=== PATIENT | male | born 1960 | race African-American/Black ===

== ENCOUNTER 2017-08-20 07:24 | Emergency (ER) | payer MEDICARE ==
[2017-08-20 07:45] VITALS: RESP 16
[2017-08-20] MEDS ORDERED: SODIUM CHLORIDE 0.9% 1,000 ML IV STA ×2 (08:28)
[2017-08-20] MEDS ORDERED: MECLIZINE 12.5 MG TAB PO STA (08:29)
--- NOTE | 2017-08-20 08:32 | ED ---
Dizziness HPI - General Chief Complaint: Dizziness Stated Complaint: lt ear pain Time Seen by Provider: 08/20/17 08:02 Source: patient, RN notes reviewed, old records reviewed Mode of arrival: wheelchair Limitations: no limitations - History of Present Illness Initial Comments: Patient is a 57-year-old male chief complaint of multiple syncopal episodes for the past evening. He reports that he is also suffering from some vertigo and sinus issues. He reports diffuse over the past few days felt pressure and pain in his left ear and Patient states that he was started on amoxicillin, steroids , and Flonase by his PCP. He's been taking these medications without any relief of the vertigo like symptoms. He reports he turns his head to the T has dizziness the room is spinning. He reports that today he was having episodes really would blackout for approximately 3-4 seconds and would wake up on the couch. Patient states that he has had vertigo in the past but is never had these blacking out episodes. Denies any other symptoms including chest pain or shortness of breath. Patient has had a few episodes of vomiting. He did not take his blood pressure medication this morning. - Related Data Home Medications Medication Instructions Recorded Confirmed Amoxic-Pot Clav 875-125Mg 1 tab PO Q12HR 08/20/17 08/20/17 [Augmentin 875-125] Fluticasone Nasal [place] [Flonase 1 spray EA NOSTRIL DAILY PRN 08/20/17 08/20/17 Nasal [place]] Montelukast Sodium [Singulair] 10 mg PO HS 08/20/17 08/20/17 Propranolol HCl [Inderal LA] 160 mg PO DAILY 08/20/17 08/20/17 Tamsulosin HCl [Flomax] 0.4 mg PO DAILY 08/20/17 08/20/17 methylPREDNISolone [Medrol Dose See Taper PO DIRECTED 08/20/17 08/20/17 Pack] Previous Rx's Medication Instructions Recorded Acetaminophen/Chlorpheniramine 1 each PO DAILY #14 tablet 08/20/17 [Coricidin Hbp Cold & Flu Tab] Meclizine [Antivert] 25 mg PO DAILY #10 tab 08/20/17 Allergies Allergy/AdvReac Type Severity Reaction Status Date / Time ibuprofen AdvReac Vomiting Verified 08/20/17 08:29 Review of Systems ROS Statement: Those systems with pertinent positive or pertinent negative responses have been documented in the HPI. ROS Other: All systems not noted in ROS Statement are negative. Past Medical History Past Medical History: Hyperlipidemia, Hypertension Additional Past Medical History / Comment(s): chronic back pain History of Any Multi-Drug Resistant Organisms: None Reported Additional Past Surgical History / Comment(s): sinus vertigo Past Psychological History: No Psychological Hx Reported Smoking Status: Current every day smoker Past Alcohol Use History: Rare Past Drug Use History: None Reported General Exam - General Exam Comments Initial Comments: Is a 57-year-old male. Alert and oriented. No significant distress. Limitations: no limitations General appearance: alert, in no apparent distress Head exam: Present: atraumatic, normocephalic, normal inspection Eye exam: Present: normal appearance, PERRL, EOMI. Absent: scleral icterus, conjunctival injection, periorbital swelling ENT exam: Present: normal exam, mucous membranes moist Neck exam: Present: normal inspection. Absent: tenderness, meningismus, lymphadenopathy Respiratory exam: Present: normal lung sounds bilaterally. Absent: respiratory distress, wheezes, rales, rhonchi, stridor Cardiovascular Exam: Present: regular rate, normal rhythm, normal heart sounds. Absent: systolic murmur, diastolic murmur, rubs, gallop, clicks GI/Abdominal exam: Present: soft, normal bowel sounds. Absent: distended, tenderness, guarding, rebound, rigid Extremities exam: Present: normal inspection Back exam: Present: normal inspection Neurological exam: Present: alert, oriented X3, CN II-XII intact Psychiatric exam: Present: normal affect, normal mood Skin exam: Present: warm, dry, intact, normal color. Absent: rash Course Vital Signs 08/20/17 08/20/17 07:40 09:15 Temperature 98.1 F Pulse Rate 62 54 L Respiratory 16 16 Rate Blood Pressure 177/102 149/89 O2 Sat by Pulse 100 95 Oximetry - Reevaluation(s) Reevaluation #1: 08/20/17 09:48 Patient was reevaluated reports is feeling better at this time. Denies any significant dizziness. He thinks that the maximum meclizine has helped his symptoms. Currently pending lab work. Medical Decision Making - Medical Decision Making Patient sexual male presents emergency Department chief complaint of sinus congestion and dizziness. He was White on antibiotics and steroids for sinus congestion from PCP earlier in the week. Patient does have some nystagmus on exam. Otherwise has no focal or lateralizing findings on neuro exam. Does have some effusion within the left ear. Patient is given meclizine and lab work obtained. Lab work was reviewed and unremarkable. No meningeal signs and otherwise appears well. Patient reports he feels better after meclizine. Discussed I will discharge the Patient with decongestant medication and meclizine continuing his antibiotics and steroids as White prescribed. QUESTIONS answered return parameters were discussed. - Lab Data Result diagrams: 08/20/17 09:05 08/20/17 09:05 Lab Results 08/20/17 08/20/17 08/20/17 Range/Units 09:05 09:05 09:05 WBC 8.5 (3.8-10.6) k/uL RBC 5.28 (4.30-5.90) m/uL Hgb 16.8 (13.0-17.5) gm/dL Hct 52.1 (39.0-53.0) % MCV 98.6 (80.0-100.0) fL MCH 31.9 (25.0-35.0) pg MCHC 32.3 (31.0-37.0) g/dL RDW 13.1 (11.5-15.5) % Plt Count 190 (150-450) k/uL Neutrophils % 64 % Lymphocytes % 27 % Monocytes % 5 % Eosinophils % 2 % Basophils % 0 % Neutrophils # 5.5 (1.3-7.7) k/uL Lymphocytes # 2.3 (1.0-4.8) k/uL Monocytes # 0.4 (0-1.0) k/uL Eosinophils # 0.2 (0-0.7) k/uL Basophils # 0.0 (0-0.2) k/uL PT (9.0-12.0) sec INR (<1.2) APTT (22.0-30.0) sec Sodium 141 (137-145) mmol/L Potassium 4.8 (3.5-5.1) mmol/L Chloride 101 (98-107) mmol/L Carbon Dioxide 27 (22-30) mmol/L Anion Gap 13 mmol/L BUN 12 (9-20) mg/dL Creatinine 0.84 (0.66-1.25) mg/dL Est GFR (CKD-EPI)AfAm >90 (>60 ml/min/1.73 sqM) Est GFR (CKD-EPI)NonAf >90 (>60 ml/min/1.73 sqM) Glucose 104 H (74-99) mg/dL Calcium 9.6 (8.4-10.2) mg/dL Magnesium 2.2 (1.6-2.3) mg/dL Total Bilirubin 1.0 (0.2-1.3) mg/dL AST 26 (17-59) U/L ALT 24 (21-72) U/L Alkaline Phosphatase 95 (38-126) U/L Total Creatine Kinase 58 (55-170) U/L CK-MB (CK-2) <0.2 (0.0-2.4) ng/mL CK-MB (CK-2) Rel Index Troponin I <0.012 (0.000-0.034) ng/mL Total Protein 7.7 (6.3-8.2) g/dL Albumin 4.5 (3.5-5.0) g/dL Urine Color Urine Appearance (Clear) Urine pH (5.0-8.0) Ur Specific [place] (1.001-1.035) Urine Protein (Negative) Urine Glucose (UA) (Negative) Urine Ketones (Negative) Urine Blood (Negative) Urine Nitrite (Negative) Urine Bilirubin (Negative) Urine Urobilinogen (<2.0) mg/dL Ur Leukocyte Esterase (Negative) 08/20/17 08/20/17 Range/Units 09:05 09:28 WBC (3.8-10.6) k/uL RBC (4.30-5.90) m/uL Hgb (13.0-17.5) gm/dL Hct (39.0-53.0) % MCV (80.0-100.0) fL MCH (25.0-35.0) pg MCHC (31.0-37.0) g/dL RDW (11.5-15.5) % Plt Count (150-450) k/uL Neutrophils % % Lymphocytes % % Monocytes % % Eosinophils % % Basophils % % Neutrophils # (1.3-7.7) k/uL Lymphocytes # (1.0-4.8) k/uL Monocytes # (0-1.0) k/uL Eosinophils # (0-0.7) k/uL Basophils # (0-0.2) k/uL PT 11.1 (9.0-12.0) sec INR 1.2 H (<1.2) APTT 23.1 (22.0-30.0) sec Sodium (137-145) mmol/L Potassium (3.5-5.1) mmol/L Chloride (98-107) mmol/L Carbon Dioxide (22-30) mmol/L Anion Gap mmol/L BUN (9-20) mg/dL Creatinine (0.66-1.25) mg/dL Est GFR (CKD-EPI)AfAm (>60 ml/min/1.73 sqM) Est GFR (CKD-EPI)NonAf (>60 ml/min/1.73 sqM) Glucose (74-99) mg/dL Calcium (8.4-10.2) mg/dL Magnesium (1.6-2.3) mg/dL Total Bilirubin (0.2-1.3) mg/dL AST (17-59) U/L ALT (21-72) U/L Alkaline Phosphatase (38-126) U/L Total Creatine Kinase (55-170) U/L CK-MB (CK-2) (0.0-2.4) ng/mL CK-MB (CK-2) Rel Index Troponin I (0.000-0.034) ng/mL Total Protein (6.3-8.2) g/dL Albumin (3.5-5.0) g/dL Urine Color Light Yellow Urine Appearance Clear (Clear) Urine pH 6.0 (5.0-8.0) Ur Specific [place] 1.004 (1.001-1.035) Urine Protein Negative (Negative) Urine Glucose (UA) Negative (Negative) Urine Ketones Negative (Negative) Urine Blood Negative (Negative) Urine Nitrite Negative (Negative) Urine Bilirubin Negative (Negative) Urine Urobilinogen <2.0 (<2.0) mg/dL Ur Leukocyte Esterase Negative (Negative) 08/20/17 08:33 EKG formed at 7:15 dementia sinus bradycardia left atrial enlargement. Borderline EKG. Ventricular rate of 51 bpm. He was 180 ms. QRS duration 82 ms. QT QTc is 412/379 ms. - Radiology Data Radiology results: report reviewed Chest x-rays negative for any acute process. Disposition Clinical Impression: Vertigo Disposition: HOME SELF-CARE Condition: Good Instructions: Dizziness (ED) Additional Instructions: Patient advised to follow-up with primary care physician within next 1-2 days. Take meclizine and use decongestant medicine as prescribed. Continue the previous prescribed antibiotics and steroids. Return to the emergency department if any alarming signs or symptoms occur. Prescriptions: Acetaminophen/Chlorpheniramine [Coricidin Hbp Cold & Flu Tab] 1 each PO DAILY # 14 tablet Meclizine [Antivert] 25 mg PO DAILY #10 tab Is patient prescribed a controlled substance at d/c from ED?: No When asked, does pt state using other controlled substances?: No If prescribed controlled substance>3 days was MAPS reviewed?: No If opioid is for acute pain is fill amount 7 days or less?: No If Rx opioid, was Start Talking consent form obtained?: No Referrals: Hosea Ji MD [Primary Care Provider] - 1-2 days Sneha Hoyos MD [STAFF PHYSICIAN] - 1-2 days Time of Disposition: 10:33
[2017-08-20 09:24] LABS: Basophils % (A) 0 %; Eosinophils # (A) 0.2 k/uL (0-0.7); Eosinophils % (A) 2 %; HCT 52.1 % (39.0-53.0); HGB 16.8 gm/dL (13.0-17.5); Lymphocytes # (A) 2.3 k/uL (1.0-4.8); Lymphocytes % (A) 27 %; MCH 31.9 pg (25.0-35.0); MCHC 32.3 g/dL (31.0-37.0); MCV 98.6 fL (80.0-100.0); Mean Platelet Volume 7.9; Monocytes # (A) 0.4 k/uL (0-1.0); Monocytes % (A) 5 %; Neutrophils # (A) 5.5 k/uL (1.3-7.7); Neutrophils % (A) 64 %; Platelet Count 190 k/uL (150-450); RBC 5.28 m/uL (4.30-5.90); RDW 13.1 % (11.5-15.5); WBC 8.5 k/uL (3.8-10.6)
[2017-08-20 09:33] LABS: INR 1.2 (<1.2); Partial Thromboplastin Time 23.1 sec (22.0-30.0); Prothrombin Time 11.1 sec (9.0-12.0)
--- NOTE | 2017-08-20 09:34 | XR ---
EXAMINATION TYPE: XR chest 2V DATE OF EXAM: 08/20/2017 COMPARISON: Chest x-ray July 15, 2009 HISTORY: Syncope and weakness TECHNIQUE: Frontal and lateral views of the chest are obtained. FINDINGS: There is no focal air space opacity, pleural effusion, or pneumothorax seen. The cardiac silhouette size is upper limits of normal currently. The osseous structures are intact. IMPRESSION: No acute cardiopulmonary process. No significant change from prior.
[2017-08-20 09:42] LABS: Appearance,Urine Clear (Clear); Bilirubin,Urine Negative (Negative); Blood,Urine Negative (Negative); Color,Urine Light Yellow; Glucose,Urine (UA) Negative (Negative); Ketones,Urine Negative (Negative); Leukocyte Esterase,Urine Negative (Negative); Nitrite,Urine Negative (Negative); Protein,Urine Negative (Negative); Specific Gravity,Urine 1.004 (1.001-1.035); Urobilinogen,Urine <2.0 mg/dL (<2.0)
[2017-08-20 09:43] LABS: Albumin 4.5 g/dL (3.5-5.0); Anion Gap 13 mmol/L; Calcium 9.6 mg/dL (8.4-10.2); Carbon Dioxide 27 mmol/L (22-30); Chloride 101 mmol/L (98-107); Glucose 104 mg/dL (74-99); Sodium 141 mmol/L (137-145); Total Protein 7.7 g/dL (6.3-8.2)
[2017-08-20 09:46] LABS: Blood Urea Nitrogen 12 mg/dL (9-20); Potassium 4.8 mmol/L (3.5-5.1)
[2017-08-20 09:47] LABS: ALT 24 U/L (21-72); AST 26 U/L (17-59); Alkaline Phosphatase 95 U/L (38-126); Magnesium 2.2 mg/dL (1.6-2.3)
[2017-08-20 09:52] LABS: Creatine Kinase 58 U/L (55-170)
[2017-08-20 10:04] LABS: Creatine Kinase MB <0.2 ng/mL (0.0-2.4); Troponin I <0.012 ng/mL (0.000-0.034)
[2017-08-20 10:51] VITALS: BP 142/82; PULSE 63; TEMP 97.3
== END 2017-08-20 11:02 | disposition home or self-care (01) ==
LOC: EC 07:24
DX: R42 Dizziness and giddiness (principal); H92.02 Otalgia, left ear; I10 Essential (primary) hypertension; F17.200 Nicotine dependence, unspecified, uncomplicated; Z79.52 Long term (current) use of systemic steroids; Z79.899 Other long term (current) drug therapy; Z88.6 Allergy status to analgesic agent
CPT/HCPCS: 36415; 71046; 80053; 81003; 82550; 82553; 83735; 84484; 85025; 85610; 85730; 93005; 96360; 96361; 99284

== ENCOUNTER → 2017-12-31 | Outpatient (CLI) | payer MEDICARE ==
--- NOTE | 2017-12-31 11:23 | CT ---
EXAMINATION TYPE: CT brain wo con DATE OF EXAM: 12/31/2017 COMPARISON: 11/30/2011 HISTORY: Headache, syncope, dizziness, recurrent sinus infections. CT DLP: 999.[address] of the brain was performed. The ventricles, basal cisterns and sulci overlying the cerebral convexities demonstrate mild enlargem ent. There is no evidence for intracranial hemorrhage or sulcal effacement. There is decreased attenuation about the periventricular white matter and deep white matter of both c erebral hemispheres, compatible with chronic small vessel ischemia. Differential diagnosis does inclu de demyelination. No mass effects are seen.No midline shift. Osseous calvarium is intact. If symptoms persist consider MRI. IMPRESSION: 1. Age related atrophic and chronic small vessel ischemic change without acute intracranial process s een at this time.
== END | disposition home or self-care (01) ==
LOC: RADCTMAIN 10:59
PROVIDERS: ATTEND Family Medicine
DX: G31.1 Senile degeneration of brain, not elsewhere classified (principal); I67.82 Cerebral ischemia
CPT/HCPCS: 70450

== ENCOUNTER → 2022-06-24 | Outpatient (CLI) | payer MEDICARE ==
--- NOTE | 2022-06-24 10:29 | CTL ---
EXAMINATION TYPE: CT Low Dose Lung DATE OF EXAM ORDERED: 06/24/2022 HISTORY: Long-term tobacco use. Lung cancer screening CT DLP: 77.[address] CTDI: 2.3 mGy Automated exposure control for dose reduction was used. SCREENING VISIT: Baseline COMPARISON: None TECHNIQUE: Low dose computed tomography scan was performed through the chest at 1 mm thick sections a nd reconstructed images in multiple planes at 1 mm and [address] DIAGNOSTIC QUALITY: Satisfactory FINDINGS: LUNG NODULES: Present, detailed below: Multiple Scattered small nodules are present bilaterally. Ther e are greatest involving the anterior aspect of the bilateral upper to mid lungs. One of the largest is in the peripheral right upper lobe measuring 4.6 x 3.9 mm axial image 71. No greater than 5 mm pul monary nodules are seen. LUNGS: COPD: Severity: Mild Fibrosis: Severity: Mild particularly in the periphery of the upper lungs. I also suspect a component of mild interstitial edema. Lymph nodes: None Other findings: None RIGHT PLEURAL SPACE: Effusion: None Calcification: None Thickening: None Pneumothorax: None LEFT PLEURAL SPACE: Effusion: None Calcification: None Thickening: None Pneumothorax: None HEART: Heart Size: Normal Coronary Calcification: Mild Pericardial Effusion: None OTHER FINDINGS: Upper abdomen: None Bony thorax: None Supraclavicular region: None Other: None IMPRESSION: Multiple small scattered nodules greatest in the upper lungs. No significant greater than 5 mm pulmonary nodules. Mild edematous and fibrotic change and background mild underlying emphysemat ous change. CT LUNG RAD AND CT CHEST RECOMMENDATION: Lung-Rad 2 Benign Appearance or Behavior: Continue annual sc reening with LDCT in 12 months. S Modifier (other clinically significant findings): None
== END | disposition home or self-care (01) ==
LOC: RADCTMAIN 09:50
PROVIDERS: ATTEND Family Medicine
DX: Z12.2 Encounter for screening for malignant neoplasm of respiratory organs (principal); F17.210 Nicotine dependence, cigarettes, uncomplicated; J43.9 Emphysema, unspecified; J84.10 Pulmonary fibrosis, unspecified; R91.8 Other nonspecific abnormal finding of lung field
CPT/HCPCS: 71271

== ENCOUNTER 2024-01-08 10:38 | Inpatient (IN) | payer MEDICARE ==
[2024-01-08] MEDS: HEPARIN SODIUM 1,000 UN/ML (10ML VL) MISCELLANE ONE (10:45)
--- NOTE | 2024-01-08 10:45 | ED ---
General Adult HPI - General Chief complaint: Chest Pain Stated complaint: Stemi Time Seen by Provider: 01/08/24 10:38 Source: patient, EMS, RN notes reviewed, old records reviewed Mode of arrival: EMS Limitations: no limitations - History of Present Illness Initial comments: This is a 63-year-old male with past medical history significant for high blood pressure and high cholesterol. Patient comes to us from [facility]. Patient was diagnosed with a STEMI at [facility] and transferred to us. They gave the patient nitro aspirin Dilaudid and morphine the patient was feeling considerably better upon arrival. Patient states the pain started about 9:00 this morning and it was in the center of his chest with some shortness of breath. Patient states he has only minimal pain at this point in time and he denies any shortness of breath currently. Patient denies any diaphoretic episode. Patient has nausea vomiting. Patient denies any recent fever chills or cough. Patient has any swelling to the legs or calf tenderness - Related Data Home Medications Medication Instructions Recorded Confirmed Amoxic-Pot Clav 875-125Mg 1 tab PO Q12HR 08/20/17 08/20/17 [Augmentin 875-125] Fluticasone Nasal [place] [Flonase 1 spray EA NOSTRIL DAILY PRN 08/20/17 08/20/17 Nasal [place]] Montelukast Sodium [Singulair] 10 mg PO HS 08/20/17 08/20/17 Propranolol HCl [Inderal LA] 160 mg PO DAILY 08/20/17 08/20/17 Tamsulosin HCl [Flomax] 0.4 mg PO DAILY 08/20/17 08/20/17 methylPREDNISolone [Medrol Dose See Taper PO DIRECTED 08/20/17 08/20/17 Pack] Previous Rx's Medication Instructions Recorded Acetaminophen/Chlorpheniramine 1 each PO DAILY #14 tablet 08/20/17 [Coricidin Hbp Cold & Flu Tab] Meclizine [Antivert] 25 mg PO DAILY #10 tab 08/20/17 Allergies Allergy/AdvReac Type Severity Reaction Status Date / Time ibuprofen AdvReac Vomiting Verified 01/08/24 10:42 Review of Systems ROS Statement: Those systems with pertinent positive or pertinent negative responses have been documented in the HPI. ROS Other: All systems not noted in ROS Statement are negative. Past Medical History Past Medical History: Hyperlipidemia, Hypertension Additional Past Medical History / Comment(s): chronic back pain History of Any Multi-Drug Resistant Organisms: None Reported Additional Past Surgical History / Comment(s): sinus vertigo Past Psychological History: No Psychological Hx Reported Past Alcohol Use History: Rare Past Drug Use History: None Reported General Exam - General Exam Comments Initial Comments: GENERAL: Patient is well-developed and well-nourished. Patient is nontoxic and well- hydrated and is in mild distress. ENT: Neck is soft and supple. No significant lymphadenopathy is noted. Oropharynx is clear. Moist mucous membranes. Neck has full range of motion without eliciting any pain. EYES: The sclera were anicteric and conjunctiva were pink and moist. Extraocular movements were intact and pupils were equal round and reactive to light. Eyelids were unremarkable. PULMONARY: Unlabored respirations. Good breath sounds bilaterally. No audible rales rhonchi or wheezing was noted. CARDIOVASCULAR: There is a regular rate and rhythm without any murmurs gallops or rubs. ABDOMEN: Soft and nontender with normal bowel sounds. SKIN: Skin is clear with no lesions or rashes and otherwise unremarkable. NEUROLOGIC: Patient is alert and oriented x3. Cranial nerves II through XII are grossly intact. Motor and sensory are also intact. Normal speech, volume and content. Symmetrical smile. MUSCULOSKELETAL: Normal extremities with adequate strength and full range of motion. No lower extremity swelling or edema. No calf tenderness. LYMPHATICS: No significant lymphadenopathy is noted PSYCHIATRIC: Normal psychiatric evaluation. Limitations: no limitations Course Vital Signs 01/08/24 10:39 Pulse Rate 57 L Respiratory 18 Rate Blood Pressure 124/101 O2 Sat by Pulse 97 Oximetry Medical Decision Making - Medical Decision Making Patient had an EKG done however there was quite a bit of noise in the precordial leads I through III so a repeat was done and those leads were able to be read but the inferior leads were very noisy and the second EKG. EKG on the first morning showed sinus bradycardia [address] of 180 QRS is 91 QT interval 427 QTc is [address] segment elevation in V5 and V6 with ST segment depression in V1 through V3 and slight elevation in 2. Second EKG was done and was interpreted by myself and shows sinus bradycardia [address] was under 97 QRS of 91 QT interval is 441 QTc is 425 per patient's EKG shows ST segment elevation in V5 V6 and depression in V1 through V3 and unable to read the inferior leads secondary to noise. Was pt. sent in by a medical professional or institution ([facility], [facility], urgent care, hospital, or long term...) When possible be specific @ -[facility] sent the patient to us Did you speak to anyone other than the patient for history (EMS, parent, family, police, friend...)? What history was obtained from this source @ -I spoke with the ER doctor from [facility] Did you review nursing and triage notes (agree or disagree)? Why? @ -I reviewed and agree with nursing and triage notes Were old charts reviewed (outside hosp., previous admission, EMS record, old EKG, old radiological studies, urgent care reports/EKG's, long term records)? Report findings @ -No old charts were reviewed Differential Diagnosis? @ -Differential Chest Pain: Stable Angina, Unstable Angina, STEMI, NSTEMI Aortic Dissection, Pneumothorax, Musculoskeletal, Esophageal Spasm GERD, Cholecystitis, Pancreatitis, Zoster, this is not meant to be an all-inclusive list. EKG interpreted by me (3pts min.). @ -As above X-rays interpreted by me (1pt min.). @ -Chest x-ray shows no acute abnormality CT interpreted by me (1pt min.). @ -None done U/S interpreted by me (1pt. min.). @ -None done What testing was considered but not performed or refused? (CT, X-rays, U/S, labs)? Why? @ -None What meds were considered but not given or refused? Why? @ -None Did you discuss the management of the patient with other professionals (sue joseph i.e. [facility], [facility], lab, RT, psych nurse, bilingual social worker, obiee obia solution architect, teacher, chief supply chain officer, case mgr)? Give summary @ -On arrival patient was called a STEMI overhead. Patient will be sent to the [facility] as soon as its available. [facility] and cardiology was contacted by the other hospital prior to arrival Was smoking cessation discussed for >3mins.? @ -No Was critical care preformed (if so, how long)? @ -30 minutes Were there social determinants of health that impacted care today? How? (Homelessness, low income, unemployed, alcoholism, drug addiction, transportation, low edu. Level, literacy, decrease access to med. care, half-way, rehab)? @ -No Was there de-escalation of care discussed even if they declined (Discuss DNR or withdrawal of care, Hospice)? DNR status @ -No What co-morbidities impacted this encounter? (DM, HTN, Smoking, COPD, CAD, Cancer, CVA, ARF, Chemo, Hep., AIDS, mental health diagnosis, sleep apnea, morbid obesity)? @ -None Was patient admitted / discharged? Hospital course, mention meds given and route, prescriptions, significant lab abnormalities, going to OR and other pertinent info. @ -Patient was given a bolus of heparin and Lipitor while in our emergency department EKG did show ST segment elevation in leads V5 V6 and in inferior leads lead2 Undiagnosed new problem with uncertain prognosis? @ -No Drug Therapy requiring intensive monitoring for toxicity (Heparin, Nitro, Insulin, Cardizem)? @ -No Were any procedures done? @ -No Diagnosis/symptom? @ -STEMI Acute, or Chronic, or Acute on Chronic? @ -Acute Uncomplicated (without systemic symptoms) or Complicated (systemic symptoms)? @ -Default Side effects of treatment? @ -Gated Exacerbation, Progression, or Severe Exacerbation? @ -No Poses a threat to life or bodily function? How? (Chest pain, [place], [place], pneumonia, PE, COPD, DKA, ARF, appy, cholecystitis, CVA, Diverticulitis, Homicidal, Suicidal, threat to staff... and all critical care pts) @ -Yes this can lead to a [place] heart damage and or endorgan dysfunction Disposition Clinical Impression: ST elevation myocardial infarction (STEMI) Disposition: ADMITTED IP TO THIS HOSP Referrals: Nolan Beck MD [Primary Care Provider] - 1-2 days Time of Disposition: 10:51
[2024-01-08] MEDS: ATORVASTATIN 80 MG TAB PO STA (10:47)
[2024-01-08 10:59] LABS: Basophils % (A) 1 %; Eosinophils # (A) 0.2 k/uL (0-0.7); Eosinophils % (A) 4 %; HCT 47.7 % (39.0-53.0); HGB 15.3 gm/dL (13.0-17.5); Lymphocytes % (A) 42 %; MCH 31.8 pg (25.0-35.0); MCV 99.3 fL (80.0-100.0); Mean Platelet Volume 8.2; Monocytes # (A) 0.6 k/uL (0-1.0); Monocytes % (A) 13 %; Neutrophils # (A) 1.8 k/uL (1.3-7.7); Neutrophils % (A) 38 %; Platelet Count 175 k/uL (150-450); RDW 12.6 % (11.5-15.5); WBC 4.7 k/uL (3.8-10.6)
--- NOTE | 2024-01-08 10:59 | XR ---
EXAMINATION TYPE: XR chest 1V DATE OF EXAM: 01/08/2024 10:43 AM COMPARISON: 08/20/2017 CLINICAL INDICATION: Male, 63 years old with history of Chest Pain, TECHNIQUE: XR chest 1V view(s) obtained. FINDINGS: The heart size is normal. The pulmonary vasculature is prominent. There is some mild diffuse increased lung markings may be some early pulmonary edema IMPRESSION: 1. Mild diffuse increased lung markings may be early pulmonary edema. [facility], , 01/08/2024 10:57 AM
[2024-01-08] MEDS: LIDOCAINE 1% INJ 10MG/ML (20 ML MDV) SQ ONE (11:02)
[2024-01-08] MEDS: fentaNYL (PF) 50 MCG/1 ML VIAL IVP ONE (11:02)
[2024-01-08] MEDS: VERAPAMIL SYRINGE (5 MG/10 ML) INTRAARTER ONE (11:05)
[2024-01-08] MEDS: SODIUM CHLORIDE 0.9% 250 ML IV ONE (11:07)
[2024-01-08] MEDS: SODIUM CHLORIDE 0.9% 1,000 ML IV ONE (11:07)
[2024-01-08] MEDS: HEPARIN SODIUM 1,000 UN/ML (10ML VL) IVP ONE (11:10)
[2024-01-08] MEDS: ONDANSETRON 4 MG/2 ML VIAL IVP ONE (11:12)
[2024-01-08 11:14] LABS: ALT 16 U/L (4-49); AST 22 U/L (17-59); African American GFR (CKD) >90 (>60 ml/min/1.73 sqM); Albumin 3.4 g/dL (3.5-5.0); Alkaline Phosphatase 109 U/L (38-126); Anion Gap 3 mmol/L; Blood Urea Nitrogen 9 mg/dL (9-20); Calcium 8.1 mg/dL (8.4-10.2); Carbon Dioxide 24 mmol/L (22-30); Chloride 110 mmol/L (98-107); Glucose 106 mg/dL (74-99); Non-African American GFR(CKD) 88 (>60 ml/min/1.73 sqM); Potassium 4.3 mmol/L (3.5-5.1); Sodium 137 mmol/L (137-145); Total Protein 6.4 g/dL (6.3-8.2)
[2024-01-08 11:20] LABS: INR 1.1 (<1.2); Prothrombin Time 11.7 sec (10.0-12.5)
[2024-01-08] MEDS: PRASUGREL 10 MG TAB PO ONE (11:21)
[2024-01-08 11:31] LABS: Partial Thromboplastin Time 19.3 sec (22.0-30.0)
[2024-01-08] MEDS: IOPAMIDOL-370 100ML BTL INJ ONE ×3 (11:36→12:26)
[2024-01-08] MEDS: NITROGLYCERIN 1000MCG/10ML SYRINGE INTRACORON ONE (11:39)
[2024-01-08] MEDS ORDERED: ATROPINE SULFATE 0.1 MG/ML 10ML SYRINGE IV PRN (12:37)
[2024-01-08] MEDS ORDERED: RX INFO: IV CONTRAST WAS GIVEN 1 EACH MISC MISCELLANE PRN (12:37)
[2024-01-08] MEDS ORDERED: ZOLPIDEM 5 MG TAB PO PRN (12:37)
--- NOTE | 2024-01-08 12:44 | P.CRDCN ---
History of Present Illness Consult date: 01/08/24 History of present illness: History of Present Illness: The patient is a 63-year-old male with a history of hypertension, chronic tobacco use who presented to [facility] with symptoms of chest discomfort and was found to have an inferolateral wall myocardial infarction with ST segment depression in the anterior leads and ST elevation in the inferolateral leads. In view of that he was transferred to [facility] for further evaluation. According to the patient he has been complaining of chest discomfort on and off for about a year worse today after having his coffee associated with dyspnea. He denies any documented history of myocardial infarction or congestive heart failure. He cannot recall any recent cardiac workup. He smokes daily, has no history of diabetes. He denies any PND, orthopnea or peripheral edema. He has no arrhythmia, dizziness or syncope. Medications: Propranolol LA 160 mg daily Flomax, Proscar, Flonase Review of Systems: Respiratory: He has a history of chronic smoking and dyspnea on exertion GI: No nausea or vomiting . No history of peptic ulcer disease. No recent GI bleed. : No hematuria or dysuria. Nervous System: No stroke or seizure. Physical Examination: 63-year-old male, alert oriented having chest discomfort, evaluated in the cardiac catheterization laboratory,Blood pressure over 98, Heart rate 57 Head: Normocephalic. Eyes: Sclerae nonicteric. Neck: Good carotid upstroke, no bruit, no jugular venous distention. Lungs: Clear to auscultation. Heart: Regular rate and rhythm, S1-S2, no S3, no rub. Systolic ejection murmur. Abdomen: Soft nontender, positive bowel sounds no organomegaly. Extremities: No edema, intact distal pulses. Labs: Hemoglobin 15.3, BUN 9, creatinine 0.93. Troponin less than 0.012. EKG: Sinus mechanism with ST segment elevation in inferior and inferolateral leads with ST depression in V1 and V2 Impression: 1. Acute inferior and inferolateral myocardial infarction with possible posterior wall extension 2. Chronic tobacco use 3. Hypertension Plan: 1. I have recommended to proceed with emergent coronary angiography, the procedure as well as the risks and the complications were discussed with the patient 2. Obtain an echocardiogram with Doppler 3. Smoking cessation, patient will be referred to [place] quit line 4. Depending on the results of his coronary angiography further recommendations will be made 5. Thank you for this consult we will follow with you Past Medical History Past Medical History: Hyperlipidemia, Hypertension Additional Past Medical History / Comment(s): chronic back pain History of Any Multi-Drug Resistant Organisms: None Reported Additional Past Surgical History / Comment(s): sinus vertigo Past Psychological History: No Psychological Hx Reported Past Alcohol Use History: Rare Past Drug Use History: None Reported Medications and Allergies Home Medications Medication Instructions Recorded Confirmed Type Fluticasone Nasal [place] [Flonase 1 spray EA NOSTRIL DAILY PRN 08/20/17 01/08/24 History Nasal [place]] Propranolol HCl [Inderal LA] 160 mg PO DAILY 08/20/17 01/08/24 History Tamsulosin HCl [Flomax] 0.4 mg PO BID 08/20/17 01/08/24 History Amoxic-Pot Clav 875-125Mg 1 tab PO BID 01/08/24 01/08/24 History [Augmentin 875-125] Finasteride [Proscar] 5 mg PO DAILY 01/08/24 01/08/24 History HYDROcodone/APAP 10-325MG [[place] 1 tab PO TID PRN 01/08/24 01/08/24 History 10-325] methylPREDNISolone Dose Pack See Taper PO DIRECTED 01/08/24 01/08/24 History [Medrol Dose Pack] Allergies Allergy/AdvReac Type Severity Reaction Status Date / Time ibuprofen AdvReac Vomiting Verified 01/08/24 10:42 Physical Exam Vitals: Vital Signs Pulse Resp BP Pulse Ox 01/08/24 10:39 57 L 18 124/101 97 Intake and Output 01/07/24 01/08/24 01/08/24 22:59 06:59 14:59 Intake Total 200 Balance 200 Intake: IV 200 Other: Weight 75.296 kg Results 01/08/24 10:46 01/08/24 10:46 Cardiac Enzymes 01/08/24 01/08/24 Range/Units 10:46 10:46 AST 22 (17-59) U/L Troponin I <0.012 (0.000-0.034) ng/mL Coagulation 01/08/24 Range/Units 10:46 PT 11.7 (10.0-12.5) sec APTT 19.3 L (22.0-30.0) sec CBC 01/08/24 Range/Units 10:46 WBC 4.7 (3.8-10.6) k/uL RBC 4.80 (4.30-5.90) m/uL Hgb 15.3 (13.0-17.5) gm/dL Hct 47.7 (39.0-53.0) % Plt Count 175 (150-450) k/uL Comprehensive Metabolic Panel 01/08/24 Range/Units 10:46 Sodium 137 (137-145) mmol/L Potassium 4.3 (3.5-5.1) mmol/L Chloride 110 H (98-107) mmol/L Carbon Dioxide 24 (22-30) mmol/L BUN 9 (9-20) mg/dL Creatinine 0.93 (0.66-1.25) mg/dL Glucose 106 H (74-99) mg/dL Calcium 8.1 L (8.4-10.2) mg/dL AST 22 (17-59) U/L ALT 16 (4-49) U/L Alkaline Phosphatase 109 (38-126) U/L Total Protein 6.4 (6.3-8.2) g/dL Albumin 3.4 L (3.5-5.0) g/dL Intake and Output 01/07/24 01/08/24 01/08/24 22:59 06:59 14:59 Intake Total 200 Balance 200 Intake: IV 200 Other: Weight 75.296 kg Patient Weight 01/09/24 06:59 Weight 75.296 kg 01/08/24 10:46 01/08/24 10:46
--- NOTE | 2024-01-08 12:55 | P.CARDCATH ---
Date of Procedure: 01/08/24 Description of Procedure: Cardiac Catheterization: The patient is a 63-year-old male who presented with an acute inferior lateral wall myocardial infarction with possible posterior extension. Recommendations were made regarding cardiac catheterization, the risks and the complications were discussed with the patient who is in full understanding and agreement. Procedure Description: Patient was brought to dental laboratory worker in fasting semi-sedated state after receiving Fentanyl and Benadryl achieiving moderate conscious sedated state. Using Xylocaine Anesthesia and modified Seldinger technique, a 6-[place] sheath was introduced in the right radial artery . Subsequently, selective coronary angiography was performed using a 6-[place] FR 4 bend guiding catheter and 5 [place] JL 3.5 catheter. Multiple views of the coronary artery including hemiaxial views were obtained. The 5 [place] pigtail catheter was used to cross the aortic valve and LVEDP was calculated. PCI: Using the 6 [place] 4 bend right Dylan guiding catheter images of the right coronary artery were performed. Because of poor backup that guiding catheter was exchanged to a 6 [place]an 0.75 AL guiding catheter. Attempt to advance a 0.014 BMW J-wire across the occlusion were unsuccessful at that point the wire was removed and a whisper J-wire with the help of a microcatheter fine cross were used to cross the lesion and the wire was positioned distally. A 6 [place] guide liner was used to stabilize the guiding catheter. A 2.0 x 12 mm trek balloon was advanced and inflation in the proximal segment of the lesion was done at 8 ronda. The balloon could not be advanced distally. The balloon was removed and a 1.0 x 10 mm sapphire balloon was advanced and multiple inflation up to 10 ronda were done. Subsequently the 2.0 x 12 mm balloon was advanced and inflations were done. The wire was exchanged using the microcatheter to a 0.014 BMW J-wire. Subsequently a [place] eye IVUS catheter was introduced and revealed diffuse disease with distal vessel measuring 2.5 mm and proximally up to 3.5 mm. At that point a 2.5 x 33 mm Xience rené point stent was advanced and deployed at 16 ronda. After removing the balloon repeat IVUS imaging was performed and subsequently a 3.5 x 20 mm NC trek balloon was advanced and inflations were done in the stent at a maximum of 10 ronda. Subsequently the wire was removed images were obtained and revealed stable successful stenting. After obtaining images of the LAD and finding the totally occluded first OM a 6 [place]an CLS 3.5 guiding catheter was introduced and using a 0.014 BMW J-wire with the fine cross the lesion was crossed and the wire was positioned distally. Subsequently the 2.0 x 12 mm trek balloon was advanced and inflations were done at 10 ronda. After removing the balloon a 2.75 x 23 mm Xience rené point stent was deployed at 16 ronda. IVUS imaging was performed and subsequently a 3.5 x 20 mm NC trek balloon was advanced and 1 inflation at 10 ronda was done. After the last inflation the wire was removed images were obtained and revealed successful stenting. Following that, catheter and sheath were removed. Hemostasis was obtained with deployment of vascular band . There was no immediate complication. Patient was returned to room in stable condition. Of note, the patient received a total of additional 4000 units of intravenous heparin as well as intra- arterial verapamil. He received an oral loading dose of Effient, his ACT was monitored. At the end of the procedure his chest discomfort improved and his EKG changes improved. Findings: Left main: This is a large size vessel, bifurcating into LAD and left circumflex, left main has no obstructive disease LAD: This is a large size vessel, reaching to the apex, giving rise to a diagonal branch in the midsegment. The takeoff of the diagonal branch has a 50 to 60% lesion. The mid LAD has 20 to 30% plaque, the rest of the vessel has no high-grade stenosis. Left circumflex: This is a large nondominant vessel. The first obtuse marginal branch is acutely occluded. There is diffuse intimal disease in the mid left circumflex. RCA: This vessel is a dominant vessel, bifurcating distally to PDA and PLV. The mid RCA is severely diseased with area of stenosis up to 99% with slow flow distally. There is collateral from the left system to the PDA. Left Ventriculogram: Not performed Hemodynamics: There was no gradient across the aortic valve, LVEDP was 20-26 mmHg Conclusion: 1. Acutely occluded OM1 2. Subtotally occluded mid RCA with collateral from the left system 3. Mild disease in the LAD 4. Successful stenting of the mid RCA with reduction of stenosis from 99% to less than 5% with IVUS imaging and HAWK-3 flow 5. Successful stenting of the OM1 with reduction of stenosis from 100% to less than 5% with IVUS imaging and HAWK-3 flow Recommendations: The patient will continue on aspirin and Effient for 1 year without any interruption in addition to aggressive coronary risks modification, attempting to maintain LDL below 70 mg/dL. The importance smoking cessation was discussed with him. He will be referred to [place] quit line. The findings and the recommendations were discussed with the patient and the family and they were in full understanding and agreement. Duration of sedation is 82 minutes.
[2024-01-08] MEDS ORDERED: FLUTICASONE NASAL 50MCG/SPRAY 16GM BTL EA NOSTRIL PRN (14:18)
--- NOTE | 2024-01-08 14:19 | P.HPIM ---
History of Present Illness H&P Date: 01/08/24 History of present illness; patient is 63-year-old gentleman with past medical history significant for hypertension, hyperlipidemia who presented to the ER with chest pain. Patient stated that he was all right this morning when he around 9 AM she started having chest pain that was central location, pressure- like, intermittent, nonradiating, no aggravating or relieving factor associated with chest pain. Patient was complaining of shortness of breath at the time. Patient also complaining of diaphoresis. There is no complaint of nausea, vomiting abdominal pain. Because of chest pain, patient initially went to [facility] where they did an EKG and was found to have ST elevation HI and was sent to [facility] Initial lab work done in the ER showed WBC 4.7, hemoglobin 15.3, platelet count 175, sodium 137, potassium 4.3, BUN 9, creatinine 0.93, glucose 106, calcium 8.1, troponin 0.012 EKG done in the ER showed heart rate of 59, ST segment elevation in 1, aVL, V5 V 6, ST segment depression seen and V1, V2 V3 no T-wave inversions seen. Chest x-ray done in the ER showed mild diffuse increased interstitial markings may be early pulmonary edema EKG was discussed with interventional cardiology and patient was taken for emergent cardiac cath Patient admitted to internal medicine service REVIEW OF SYSTEMS: CONSTITUTIONAL: No fever, no malaise, no fatigue. HEENT: No recent visual problems or hearing problems. Denied any sore throat. CARDIOVASCULAR: As mentioned above. PULMONARY: As mentioned above. GASTROINTESTINAL: No diarrhea, no nausea, no vomiting, no abdominal pain. NEUROLOGICAL: No headaches, no weakness, no numbness. HEMATOLOGICAL: Denies any bleeding or petechiae. GENITOURINARY: Denies any burning micturition, frequency, or urgency. MUSCULOSKELETAL/RHEUMATOLOGICAL: Denies any joint pain, swelling, or any muscle pain. ENDOCRINE: Denies any polyuria or polydipsia. The rest of the 14-point review of systems is negative. PHYSICAL EXAMINATION: GENERAL: The patient is alert and oriented x3, not in any acute distress. Well developed, well nourished. HEENT: Pupils are round and equally reacting to light. EOMI. No scleral icterus. No conjunctival pallor. Normocephalic, atraumatic. No pharyngeal erythema. No thyromegaly. CARDIOVASCULAR: S1 and S2 present. No murmurs, rubs, or gallops. PULMONARY: Chest is clear to auscultation, no wheezing or crackles. ABDOMEN: Soft, nontender, nondistended, normoactive bowel sounds. No palpable organomegaly. MUSCULOSKELETAL: No joint swelling or deformity. EXTREMITIES: No cyanosis, clubbing, or pedal edema. NEUROLOGICAL: Gross neurological examination did not reveal any focal deficits. SKIN: No rashes. Assessment and plan Acute ST elevation HI Hypertension Hyperlipidemia Monitor vital signs Monitor CBC Monitor CMP Continue telemetry monitoring Status post cardiac cath with Successful stenting of the mid RCA and stenting of the OM1. Ordered 2D echo Ordered aspirin and Effient Ordered Lipitor Cardiology following Patient to monitor in the ICU Labs and medication were reviewed.. Continue same treatment. Continue with symptomatic treatment. Resume home medication. Monitor labs and vitals. DVT and GI prophylaxis. Further recommendations as per clinical course of the p atient Dictation was produced using [employer] dictation software. please excuse any grammatical, word or spelling errors. Past Medical History Past Medical History: Hyperlipidemia, Hypertension Additional Past Medical History / Comment(s): chronic back pain History of Any Multi-Drug Resistant Organisms: None Reported Additional Past Surgical History / Comment(s): sinus vertigo Past Psychological History: No Psychological Hx Reported Past Alcohol Use History: Rare Past Drug Use History: None Reported Medications and Allergies Home Medications Medication Instructions Recorded Confirmed Type Fluticasone Nasal [place] [Flonase 1 spray EA NOSTRIL DAILY PRN 08/20/17 01/08/24 History Nasal [place]] Propranolol HCl [Inderal LA] 160 mg PO DAILY 08/20/17 01/08/24 History Tamsulosin HCl [Flomax] 0.4 mg PO BID 08/20/17 01/08/24 History Amoxic-Pot Clav 875-125Mg 1 tab PO BID 01/08/24 01/08/24 History [Augmentin 875-125] Finasteride [Proscar] 5 mg PO DAILY 01/08/24 01/08/24 History HYDROcodone/APAP 10-325MG [[place] 1 tab PO TID PRN 01/08/24 01/08/24 History 10-325] methylPREDNISolone Dose Pack See Taper PO DIRECTED 01/08/24 01/08/24 History [Medrol Dose Pack] Allergies Allergy/AdvReac Type Severity Reaction Status Date / Time ibuprofen AdvReac Vomiting Verified 01/08/24 10:42 Physical Exam Vitals: Vital Signs Temp Pulse Resp BP Pulse Ox 01/08/24 13:45 74 18 143/102 94 L 01/08/24 13:30 56 L 20 124/79 96 01/08/24 13:15 58 L 16 124/79 95 01/08/24 13:00 74 16 132/92 94 L 01/08/24 12:45 96.3 F L 63 16 92 L 01/08/24 12:43 87 18 88 L 01/08/24 10:39 57 L 18 124/101 97 Intake and Output 01/07/24 01/08/24 01/08/24 22:59 06:59 14:59 Intake Total 425 Output Total 0 Balance 425 Intake: IV 200 Intake, IV Titration 225 Amount Sodium Chloride 0.9% 1, 225 000 ml In Empty Bag 1 bag @ 1 ML/KG/HR 75.296 mls/ hr IV .[id number] [facility] Rx#: [id number] Output: Urine 0 Other: Weight 75.296 kg Results CBC & Chem 7: 01/08/24 10:46 01/08/24 10:46 Labs: Abnormal Lab Results - Last 24 Hours (Table) 01/08/24 01/08/24 Range/Units 10:46 10:46 APTT 19.3 L (22.0-30.0) sec Chloride 110 H (98-107) mmol/L Glucose 106 H (74-99) mg/dL Calcium 8.1 L (8.4-10.2) mg/dL Albumin 3.4 L (3.5-5.0) g/dL
[2024-01-08 14:51] LABS: ALT 52 U/L (4-49); African American GFR (CKD) >90 (>60 ml/min/1.73 sqM); Albumin 3.5 g/dL (3.5-5.0); Anion Gap 8 mmol/L; Blood Urea Nitrogen 9 mg/dL (9-20); Calcium 8.2 mg/dL (8.4-10.2); Carbon Dioxide 15 mmol/L (22-30); Chloride 112 mmol/L (98-107); Glucose 106 mg/dL (74-99); Non-African American GFR(CKD) >90 (>60 ml/min/1.73 sqM); Sodium 135 mmol/L (137-145); Total Bilirubin 1.2 mg/dL (0.2-1.3); Total Protein 6.7 g/dL (6.3-8.2)
[2024-01-08 15:11] LABS: AST 371 U/L (17-59); Magnesium 2.1 mg/dL (1.6-2.3); Phosphorus 3.2 mg/dL (2.5-4.5); Potassium 5.2 mmol/L (3.5-5.1)
[2024-01-08 15:12] LABS: Alkaline Phosphatase 116 U/L (38-126)
[2024-01-08] MEDS: NICOTINE 21MG/24HR PATCH TRANSDERM SCH (15:42)
[2024-01-08] MEDS: SODIUM CHLORIDE 0.9% 1,000 ML in EMPTY BAG 1 BAG IV SCH (15:45)
--- NOTE | 2024-01-08 16:23 | CA ---
Transthoracic Echo Report Name: Jacoby Burnett Age: 63 Gender: M : 1960 Exam Date: 01/08/2024 14:28 Exam Location: [place] Echo Ht (in): 78 Wt (lb): 166 Ordering Physician: Fred Gotti MD ([id number]) Attending/Referring Phys: Differential Tester Karen Ralph RDCS Procedure CPT: Indications: DC Cardiac Hx: Technical Quality: Good Contrast 1: Total Dose (mL): Contrast 2: Total Dose (mL): MEASUREMENTS (Male / Female) Normal Values 2D ECHO LV Diastolic Diameter PLAX 4.6 cm 4.2 - 5.9 / 3.9 - 5.3 cm LV Systolic Diameter PLAX 2.9 cm IVS Diastolic Thickness 0.9 cm 0.6 - 1.0 / 0.6 - 0.9 cm LVPW Diastolic Thickness 1.0 cm 0.6 - 1.0 / 0.6 - 0.9 cm LV Relative Wall Thickness 0.4 RV Internal Dim ED PLAX 2.8 cm LA Systolic Diameter LX 3.4 cm 3.0 - 4.0 / 2.7 - 3.8 cm LV Diastolic Volume MOD BP 58.7 cm??? 67 - 155 / 56 - 104 cm??? LV Systolic Volume MOD BP 27.2 cm??? 22 - 58 / 19 - 49 cm??? LV Ejection Fraction MOD BP 53.6 % >= 55 % LV Cardiac Index MOD BP 858.6 cm???/min???m??? LV Diastolic Volume MOD 4C 63.7 cm??? LV Systolic Volume MOD 4C 24.8 cm??? LV Ejection Fraction MOD 4C 61.1 % LV Cardiac Index MOD 4C 1061.1 cm???/min???m??? LV Diastolic Length 4C 7.6 cm LV Systolic Length 4C 6.7 cm LV Diastolic Volume MOD 2C 53.8 cm??? LV Systolic Volume MOD 2C 26.8 cm??? LV Ejection Fraction MOD 2C 50.2 % LV Cardiac Index MOD 2C 737.1 cm???/min???m??? LV Diastolic Length 2C 7.7 cm LV Systolic Length 2C 7.7 cm LA Volume 43.1 cm??? 18 - 58 / 22 - 52 cm??? LA Volume Index 21.4 cm???/m??? 16 - 28 cm???/m??? M-MODE Aortic Root Diameter MM 3.5 cm AV Cusp Separation MM 2.0 cm DOPPLER AV Peak Velocity 115.1 cm/s AV Peak Gradient 5.3 mmHg MV Area PHT 4.9 cm??? Mitral E Point Velocity 95.0 cm/s Mitral A Point Velocity 84.3 cm/s Mitral E to A Ratio 1.1 MV Deceleration Time 155.3 ms TR Peak Velocity 269.7 cm/s TR Peak Gradient 29.1 mmHg Right Ventricular Systolic Press 32.5 mmHg FINDINGS Left Ventricle Left ventricular ejection fraction is estimated at 45-50 %. Mildly decreased left ventricular ejection fraction. Left ventricular cavity size normal. Left ventricular wall thickness normal. Inferior and lateral wall hypokinesis Right Ventricle Normal right ventricular size. Right ventricular systolic pressure within normal limits. Right Atrium Normal right atrial size. No right atrial thrombus or mass seen. Left Atrium Normal left atrial size. No left atrial thrombus or mass present. Mitral Valve Structurally normal mitral valve. No mitral stenosis, or prolapse.mild mitral regurgitation. Aortic Valve Trileaflet aortic valve. No aortic valve stenosis or regurgitation. Tricuspid Valve Structurally normal tricuspid valve. Mild tricuspid regurgitation. Pulmonic Valve Structurally normal pulmonic valve. Trace pulmonic regurgitation. Pericardium No pericardial or pleural effusion. Aorta Normal size aortic root and proximal ascending aorta. CONCLUSIONS Normal left ventricular systolic function with mildly impaired systolic function with segmental wall motion abnormality Mild mitral and tricuspid regurgitation and no evidence of pulmonary hypertension Previewed by: Dr. Fred Gotti MD (Electronically Signed) Final Date: 08 January 2024 16:22
[2024-01-08] MEDS: ACETAMINOPHEN TAB 325 MG TAB PO PRN (19:07)
[2024-01-08] MEDS: METOPROLOL TARTRATE 25 MG TAB PO SCH (20:12)
[2024-01-08] MEDS: ATORVASTATIN 80 MG TAB PO SCH (20:12)
[2024-01-08] MEDS: NITROGLYCERIN SL TABS 0.4 MG TAB SUBLINGUAL PRN (23:19)
[2024-01-09 06:29] LABS: African American GFR (CKD) >90 (>60 ml/min/1.73 sqM); Anion Gap -1 mmol/L; Blood Urea Nitrogen 8 mg/dL (9-20); Calcium 8.3 mg/dL (8.4-10.2); Carbon Dioxide 28 mmol/L (22-30); Chloride 107 mmol/L (98-107); Glucose 102 mg/dL (74-99); Non-African American GFR(CKD) >90 (>60 ml/min/1.73 sqM); Potassium 4.1 mmol/L (3.5-5.1); Sodium 134 mmol/L (137-145)
[2024-01-09] MEDS: FINASTERIDE 5 MG TAB PO SCH (08:20)
[2024-01-09] MEDS: ASPIRIN 81 MG PO SCH (08:20)
[2024-01-09] MEDS: TAMSULOSIN 0.4 MG CAP.ER.24H PO SCH (08:20)
[2024-01-09] MEDS: lisinopriL 5 MG TAB PO SCH ×2 (08:20→20:29)
[2024-01-09] MEDS: MAG HYDROX/AL HYDROX/SIMETH 30 ML CUP PO PRN (08:42)
[2024-01-09] MEDS: PRASUGREL 10 MG TAB PO SCH (08:42)
--- NOTE | 2024-01-09 09:16 | P.PN ---
Subjective Progress Note Date: 01/09/24 PROGRESS NOTE The patient is a 63-year-old male with a history of hypertension, chronic tobacco use who presented to [facility] with symptoms of chest discomfort and was found to have an inferolateral wall myocardial infarction with ST segment depression in the anterior leads and ST elevation in the inferolateral leads. In view of that he was transferred to [facility] for further evaluation. According to the patient he has been complaining of chest discomfort on and off for about a year worse today after having his coffee associated with dyspnea. He denies any documented history of myocardial infarction or congestive heart failure. He cannot recall any recent cardiac workup. He smokes daily, has no history of diabetes. He denies any PND, orthopnea or peripheral edema. He has no arrhythmia, dizziness or syncope. January 08: The patient feels well this morning, he had vague chest discomfort yesterday does not appear to be ischemic. He is in sinus mechanism. Hemodynamically stable. His cardiac catheterization yesterday showed subtotal chronic occlusion of the RCA with acute occlusion of the OM1. He underwent stenting of both vessels. His echocardiogram showed mildly impaired systolic function with inferior and lateral wall hypokinesis. He has no evidence of ventricular ectopic activity or atrial fibrillation. Medications: Aspirin, Effient 10 mg daily, Lipitor 80 mg daily, Zestril 5 mg daily, metoprolol tartrate 25 mg twice a day PHYSICAL EXAMINATION: Blood pressure 137/97 heart rate 64 LUNGS: Clear to auscultation HEART: Regular rate and rhythm, S1, S2. No S3. No systolic murmur ABDOMEN: Soft, nontender, no organomegaly EXTREMETIES: No edema, right radial pulse intact LAB: Potassium 4.1, BUN 8, creatinine 0.88. EKG shows evidence of inferolateral T wave inversion IMPRESSION: 1. Status post STEMI and stenting of the RCA and OM1 2. History of chronic tobacco use 3. Hypertension 4. Mild cardiomyopathy PLAN: 1. Increase Zestril 2. Increase physical activity 3. If stable transfer to telemetry floor 4. Depending on his progress further recommendations will be made Objective - Vital Signs Vital signs: Vital Signs Temp 98.1 F 01/09/24 08:00 Pulse 64 01/09/24 09:00 Resp 16 01/09/24 09:00 BP 137/97 01/09/24 09:00 Pulse Ox 98 01/09/24 09:00 FiO2 Intake & Output 01/08/24 01/09/24 01/09/24 18:59 06:59 18:59 Intake Total 725 690 Output Total 500 1050 0 Balance 225 -360 0 Weight 75.296 kg 79.7 kg Intake: IV 200 Intake, IV Titration 525 150 Amount Sodium Chloride 0.9% 1, 525 150 000 ml In Empty Bag 1 bag @ 1 ML/KG/HR 75.296 mls/ hr IV .[id number] REPLACED BY [facility] Rx#: [id number] Oral 540 Output: Urine 500 1050 0 Other: Voiding Method Urinal Urinal Toilet Urinal # Voids 0 1 - Labs CBC & Chem 7: 01/08/24 10:46 01/09/24 06:02 Labs: Abnormal Lab Results - Last 24 Hours (Table) 01/08/24 01/08/24 01/08/24 Range/Units 10:46 10:46 13:56 APTT 19.3 L (22.0-30.0) sec Sodium 135 L (137-145) mmol/L Potassium 5.2 H (3.5-5.1) mmol/L Chloride 110 H 112 H (98-107) mmol/L Carbon Dioxide 15 L (22-30) mmol/L BUN (9-20) mg/dL Glucose 106 H 106 H (74-99) mg/dL Hemoglobin A1c (<=6.0) % Calcium 8.1 L 8.2 L (8.4-10.2) mg/dL AST 371 H (17-59) U/L ALT 52 H (4-49) U/L Albumin 3.4 L (3.5-5.0) g/dL 01/08/24 01/09/24 Range/Units 13:56 06:02 APTT (22.0-30.0) sec Sodium 134 L (137-145) mmol/L Potassium (3.5-5.1) mmol/L Chloride (98-107) mmol/L Carbon Dioxide (22-30) mmol/L BUN 8 L (9-20) mg/dL Glucose 102 H (74-99) mg/dL Hemoglobin A1c 6.2 H (<=6.0) % Calcium 8.3 L (8.4-10.2) mg/dL AST (17-59) U/L ALT (4-49) U/L Albumin (3.5-5.0) g/dL
[2024-01-09 09:49] LABS: Chol/HDL Ratio 4.28 Ratio; LDL Cholesterol,Calculated 102.7 mg/dL (0.0-131.0); VLDL Calculation 13.78 mg/dL (5.00-40.00)
--- NOTE | 2024-01-09 13:28 | P.PN ---
Subjective Progress Note Date: 01/09/24 patient is 63-year-old gentleman with past medical history significant for hypertension, hyperlipidemia who presented to the ER with chest pain. Patient stated that he was all right this morning when he around 9 AM she started having chest pain that was central location, pressure-like, intermittent, nonradiating, no aggravating or relieving factor associated with chest pain. Patient was complaining of shortness of breath at the time. Patient also complaining of diaphoresis. There is no complaint of nausea, vomiting abdominal pain. Because of chest pain, patient initially went to [facility] where they did an EKG and was found to have ST elevation CO and was sent to [facility] Initial lab work done in the ER showed WBC 4.7, hemoglobin 15.3, platelet count 175, sodium 137, potassium 4.3, BUN 9, creatinine 0.93, glucose 106, calcium 8.1, troponin 0.012 EKG done in the ER showed heart rate of 59, ST segment elevation in 1, aVL, V5 V6, ST segment depression seen and V1, V2 V3 no T-wave inversions seen. Chest x-ray done in the ER showed mild diffuse increased interstitial markings may be early pulmonary edema EKG was discussed with interventional cardiology and patient was taken for emergent cardiac cath Patient admitted to internal medicine service 01/08. Patient seen and examined. 2D echo done showed left ventricle systolic function with mildly impaired systolic function LVEF of 45-50 % with segmental wall motion abnormality. Patient was complaining of right calf tick bite about 2 months ago. REVIEW OF SYSTEMS: CONSTITUTIONAL: No fever, no malaise,. CARDIOVASCULAR: No chest pain, no palpitations, no syncope. PULMONARY: No shortness of breath, no cough, GASTROINTESTINAL: No diarrhea, no nausea, no vomiting, no abdominal pain. NEUROLOGICAL: No headaches, no weakness, PHYSICAL EXAMINATION: GENERAL: The patient is alert and oriented x3, not in any acute distress. Well developed, well nourished. HEENT: Pupils are round and equally reacting to light. EOMI. No scleral icterus. No conjunctival pallor. Normocephalic, atraumatic. No pharyngeal erythema. No thyromegaly. CARDIOVASCULAR: S1 and S2 present. No murmurs, rubs, or gallops. PULMONARY: Chest is clear to auscultation, no wheezing or crackles. ABDOMEN: Soft, nontender, nondistended, normoactive bowel sounds. No palpable organomegaly. MUSCULOSKELETAL: No joint swelling or deformity. EXTREMITIES: No cyanosis, clubbing. Right calf scab NEUROLOGICAL: Gross neurological examination did not reveal any focal deficits. SKIN: No rashes. Assessment and plan Acute ST elevation CO Hypertension Hyperlipidemia Monitor vital signs Monitor CBC Monitor CMP Continue telemetry monitoring Status post cardiac cath with Successful stenting of the mid RCA and stenting of the OM1. Continue aspirin, Lipitor Continue Effient Cardiology following Labs and medication were reviewed.. Continue same treatment. Continue with symptomatic treatment. Resume home medication. Monitor labs and vitals. DVT and GI prophylaxis. Further recommendations as per clinical course of the patie nt Dictation was produced using [employer] dictation software. please excuse any grammatical, word or spelling errors. Objective - Vital Signs Vital signs: Vital Signs Temp 98.1 F 01/09/24 08:00 Pulse 68 01/09/24 10:00 Resp 19 01/09/24 10:00 BP 147/97 01/09/24 10:00 Pulse Ox 96 01/09/24 10:00 FiO2 Intake & Output 01/08/24 01/09/24 01/09/24 18:59 06:59 18:59 Intake Total 725 690 Output Total 500 1050 0 Balance 225 -360 0 Weight 75.296 kg 79.7 kg Intake: IV 200 Intake, IV Titration 525 150 Amount Sodium Chloride 0.9% 1, 525 150 000 ml In Empty Bag 1 bag @ 1 ML/KG/HR 75.296 mls/ hr IV .[id number] [facility] Rx#: [id number] Oral 540 Output: Urine 500 1050 0 Other: Voiding Method Urinal Urinal Toilet Urinal # Voids 0 1 - Labs CBC & Chem 7: 01/08/24 10:46 01/09/24 06:02 Labs: Abnormal Lab Results - Last 24 Hours (Table) 01/08/24 01/08/24 01/08/24 Range/Units 10:46 10:46 13:56 APTT 19.3 L (22.0-30.0) sec Sodium 135 L (137-145) mmol/L Potassium 5.2 H (3.5-5.1) mmol/L Chloride 110 H 112 H (98-107) mmol/L Carbon Dioxide 15 L (22-30) mmol/L BUN (9-20) mg/dL Glucose 106 H 106 H (74-99) mg/dL Hemoglobin A1c (<=6.0) % Calcium 8.1 L 8.2 L (8.4-10.2) mg/dL AST 371 H (17-59) U/L ALT 52 H (4-49) U/L Albumin 3.4 L (3.5-5.0) g/dL HDL Cholesterol (40.00-60.00) mg/dL 01/08/24 01/09/24 Range/Units 13:56 06:02 APTT (22.0-30.0) sec Sodium 134 L (137-145) mmol/L Potassium (3.5-5.1) mmol/L Chloride (98-107) mmol/L Carbon Dioxide (22-30) mmol/L BUN 8 L (9-20) mg/dL Glucose 102 H (74-99) mg/dL Hemoglobin A1c 6.2 H (<=6.0) % Calcium 8.3 L (8.4-10.2) mg/dL AST (17-59) U/L ALT (4-49) U/L Albumin (3.5-5.0) g/dL HDL Cholesterol 35.50 L (40.00-60.00) mg/dL
[2024-01-09] MEDS: DOCUSATE 100 MG CAP PO SCH (13:58)
[2024-01-09] MEDS: DOXYCYCLINE 100 MG CAP PO SCH (20:30)
--- NOTE | 2024-01-09 21:59 | P.CONS ---
History of Present Illness - Reason for Consult Consult date: 01/09/24 Right leg tick bite Requesting physician: Leonardo Williamson - Chief Complaint Chest pain x 1 day - History of Present Illness Patient is a 63-year-old -[place] male with a past medical history significant for hypertension hyperlipidemia was transferred from [facility] where the patient was diagnosed with ST elevated IN patient subsequently was taken to the [facility] and the patient is successful stenting of the mid RCA and DARIEN patient subsequently has been admitted to the ICU patient also reported to the admitting physician today about headache bite that he has about 2 months ago with the patient mention he was able to take most of the takeout however it may be concerned there was something left the patient keep on digging and scratching out patient did not recall he developing any erythema around the bite site or any drainage and currently denies having any rash joint swelling and did not recall receiving any medication for it patient did have mild dull aching pain to the right lower extremity site of the bite without radiation and no drainage and no fever no chills on presentation to the hospital the patient was afebrile and no fever have been called subsequently patient was not tachycardic hypotensive or hypoxic he did have white count of 4.7 creatinine 0.88 liver isms mildly elevated Review of Systems Positive point and negatives has been mentioned in the HPI, complete review of systems was performed and all other systems are negative Past Medical History Past Medical History: Hyperlipidemia, Hypertension Additional Past Medical History / Comment(s): sinus surgery/adenoid removal chronic back pain History of Any Multi-Drug Resistant Organisms: None Reported Past Surgical History: Heart Catheterization With Stent Additional Past Surgical History / Comment(s): sinus vertigo, stent RCA and OM Past Anesthesia/Blood Transfusion Reactions: No Reported Reaction Date of Last Stent Placement:: 01/08/24 Past Psychological History: No Psychological Hx Reported Smoking Status: Current every day smoker Past Alcohol Use History: Daily Additional Past Alcohol Use History / Comment(s): beer 2/ most days Past Drug Use History: None Reported - Past Family History Mother Family Medical History: Diabetes Mellitus Medications and Allergies Home Medications Medication Instructions Recorded Confirmed Type Fluticasone Nasal [place] [Flonase 1 spray EA NOSTRIL DAILY PRN 08/20/17 01/08/24 History Nasal [place]] Tamsulosin HCl [Flomax] 0.4 mg PO BID 08/20/17 01/08/24 History Finasteride [Proscar] 5 mg PO DAILY 01/08/24 01/08/24 History HYDROcodone/APAP 10-325MG [[place] 1 tab PO TID PRN 01/08/24 01/08/24 History 10-325] Aspirin 81 mg PO DAILY #30 tab 01/10/24 Rx Atorvastatin [Lipitor] 80 mg PO HS 30 Days #30 tab 01/10/24 Rx Doxycycline [Vibramycin] 100 mg PO BID 10 Days #20 cap 01/10/24 Rx Metoprolol Tartrate [Lopressor] 25 mg PO BID 30 Days #60 tab 01/10/24 Rx Nitroglycerin Sl Tabs [Nitrostat] 0.4 mg SUBLINGUAL Q5M PRN #30 tab 01/10/24 Rx Prasugrel [Effient] 10 mg PO DAILY 30 Days #30 tab 01/10/24 Rx lisinopriL [Zestril] 5 mg PO BID 30 Days #60 tab 01/10/24 Rx Allergies Allergy/AdvReac Type Severity Reaction Status Date / Time ibuprofen AdvReac Vomiting Verified 01/08/24 10:42 Physical Exam Vitals: Vital Signs Temp Pulse Resp BP Pulse Ox 01/09/24 12:00 98.5 F 69 16 137/91 97 01/09/24 11:00 63 22 159/112 97 01/09/24 10:00 68 19 147/97 96 01/09/24 09:00 64 16 137/97 98 01/09/24 08:00 98.1 F 69 16 159/112 96 01/09/24 07:00 58 L 13 137/84 93 L 01/09/24 06:00 69 21 135/85 95 01/09/24 05:00 56 L 5 L 130/100 94 L 01/09/24 04:00 98.1 F 55 L 12 139/93 95 01/09/24 03:00 55 L 12 133/83 97 01/09/24 02:00 69 14 119/80 96 01/09/24 01:00 54 L 17 117/84 96 01/09/24 00:29 53 L 13 117/84 95 01/09/24 00:00 98.1 F 56 L 15 132/90 95 01/08/24 23:00 52 L 11 L 135/92 96 01/08/24 22:00 54 L 12 129/88 96 01/08/24 21:00 54 L 14 147/97 96 01/08/24 20:00 98.2 F 62 15 150/101 96 01/08/24 19:00 58 L 16 144/86 95 01/08/24 18:00 63 16 145/84 97 01/08/24 17:30 55 L 16 97 01/08/24 17:00 53 L 16 150/101 96 01/08/24 16:30 57 L 16 97 01/08/24 16:00 98.0 F 68 18 139/101 97 01/08/24 15:30 56 L 16 136/83 96 01/08/24 15:00 65 6 L 96 01/08/24 14:30 65 12 130/100 95 01/08/24 14:00 56 L 20 143/102 95 Intake and Output 01/08/24 01/09/24 01/09/24 22:59 06:59 14:59 Intake Total 990 Output Total 600 950 0 Balance 390 -950 0 Intake: Intake, IV Titration 450 Amount Sodium Chloride 0.9% 1, 450 000 ml In Empty Bag 1 bag @ 1 ML/KG/HR 75.296 mls/ hr IV .[id number] [facility] Rx#: [id number] Oral 540 Output: Urine 600 950 0 Other: Voiding Method Urinal Urinal Toilet Urinal # Voids 0 0 1 Weight 79.7 kg GENERAL DESCRIPTION: Middle-aged male lying in bed, no distress. No tachypnea or accessory muscle of respiration use. HEENT: Shows Pallor , no scleral icterus. Oral mucous membrane is dry. No pharyngeal erythema or thrush NECK: Trachea central, no thyromegaly. LUNGS: Unlabored breathing. Clear to auscultation anteriorly. No wheeze or crackle. HEART: S1, S2, regular rate and rhythm. No loud murmur ABDOMEN: Soft, no tenderness , guarding or rigidity, no organomegaly EXTREMITIES: Right lower extremity did have a small ulcer possible from the patient scratching needed with no surrounding redness or any foul-smelling drainage SKIN: No rash, no masses palpable. NEUROLOGICAL: The patient is awake, alert, oriented x3, mood and affect normal. Results CBC & Chem 7: 01/08/24 10:46 01/10/24 06:52 Labs: Abnormal Lab Results - Last 24 Hours (Table) 01/08/24 01/08/24 01/09/24 Range/Units 13:56 13:56 06:02 Sodium 135 L 134 L (137-145) mmol/L Potassium 5.2 H (3.5-5.1) mmol/L Chloride 112 H (98-107) mmol/L Carbon Dioxide 15 L (22-30) mmol/L BUN 8 L (9-20) mg/dL Glucose 106 H 102 H (74-99) mg/dL Hemoglobin A1c 6.2 H (<=6.0) % Calcium 8.2 L 8.3 L (8.4-10.2) mg/dL AST 371 H (17-59) U/L ALT 52 H (4-49) U/L HDL Cholesterol 35.50 L (40.00-60.00) mg/dL Assessment and Plan (1) Tick bite Current Visit: Yes Status: Acute Code(s): W57.XXXA - BIT/STUNG BY NONVENOM I NSECT & OTH NONVENOM ARTHROPODS, INIT SNOMED Code(s): 24449506 (2) Leg wound, right Current Visit: Yes Status: Acute Code(s): S81.801A - UNSPECIFIED OPEN WOUND, RIGHT LOWER LEG, INITIAL ENCOUNTER SNOMED Code(s): 99098923431343633 Plan: 1patient with superficial wound to the right lower extremity in this patient reporting history of tick bite 2 months ago and the area has not completely healed up since then but did not recall any rash joint swelling or fever, the possible reason for nonhealing as the patient keep on taking at this area with evidence of any secondary bacterial cellulitis 2-we will check a Lyme serology 3-empirically add doxycycline 100 mg twice a day and see clinical response We will follow on clinical condition and cultures to further adjust medication if needed Thank you for this consultation we will follow the patient along with you Dictation was produced using [employer] dictation software. please excuse any grammatical, word or spelling errors. Time with Patient: Greater than 30
[2024-01-10 04:31] VITALS: TEMP 98.3
[2024-01-10 08:02] LABS: African American GFR (CKD) >90 (>60 ml/min/1.73 sqM); Anion Gap 4 mmol/L; Blood Urea Nitrogen 7 mg/dL (9-20); Calcium 8.5 mg/dL (8.4-10.2); Carbon Dioxide 28 mmol/L (22-30); Chloride 105 mmol/L (98-107); Glucose 92 mg/dL (74-99); Non-African American GFR(CKD) >90 (>60 ml/min/1.73 sqM); Potassium 3.8 mmol/L (3.5-5.1); Sodium 137 mmol/L (137-145)
[2024-01-10 08:43] VITALS: BP 111/67; PULSE 77; RESP 18
--- NOTE | 2024-01-10 11:02 | P.DS ---
Providers Date of admission: 01/08/24 10:52 Expected date of discharge: 01/10/24 Attending physician: Lee Spear Consults: 01/08/24 12:37 Consult Physician Routine Consulting Provider: [facility] Consult Reason/Comments: Post Interventional Patient Do you want consulting provider notified?: Already Contacted 01/09/24 13:19 Consult Physician Routine Consulting Provider: Farida Marcelino Consult Reason/Comments: right left tick bite from 2 month ago Do you want consulting provider notified?: Already Contacted Primary care physician: [facility] Hospital Course: Discharge diagnoses; Acute ST elevation OR Hypertension Hyperlipidemia History of tick bite Hospital course; patient is 63-year-old gentleman with past medical history significant for hypertension, hyperlipidemia who presented to the ER with chest pain. Patient stated that he was all right this morning when he around 9 AM she started having chest pain that was central location, pressure-like, intermittent, nonradiating, no aggravating or relieving factor associated with chest pain. Patient was complaining of shortness of breath at the time. Patient also complaining of diaphoresis. There is no complaint of nausea, vomiting abdominal pain. Because of chest pain, patient initially went to [facility] where they did an EKG and was found to have ST elevation OR and was sent to [facility] Initial lab work done in the ER showed WBC 4.7, hemoglobin 15.3, platelet count 175, sodium 137, potassium 4.3, BUN 9, creatinine 0.93, glucose 106, calcium 8.1, troponin 0.012 EKG done in the ER showed heart rate of 59, ST segment elevation in 1, aVL, V5 V6, ST segment depression seen and V1, V2 V3 no T-wave inversions seen. Chest x-ray done in the ER showed mild diffuse increased interstitial markings may be early pulmonary edema EKG was discussed with interventional cardiology and patient was taken for emergent cardiac cath Patient admitted to internal medicine service 01/08. Patient seen and examined. Status post cardiac cath with Successful stenting of the mid RCA and stenting of the OM1..2D echo done showed left ventricle systolic function with mildly impaired systolic function LVEF of 45-50 % with segmental wall motion abnormality. Patient was complaining of right calf tick bite about 2 months ago. 01/09. Patient seen examined. ID gwen the patient, ordered Lyme serologies, recommended starting patient on doxycycline for 10 days with outpatient follow- up. Cardiology cleared the patient for discharge on aspirin and Effient. Outpatient follow-up with cardiology PHYSICAL EXAMINATION: GENERAL: The patient is alert and oriented x3, not in any acute distress. Well developed, well nourished. HEENT: Pupils are round and equally reacting to light. EOMI. No scleral icterus. No conjunctival pallor. Normocephalic, atraumatic. No pharyngeal erythema. No thyromegaly. CARDIOVASCULAR: S1 and S2 present. No murmurs, rubs, or gallops. PULMONARY: Chest is clear to auscultation, no wheezing or crackles. ABDOMEN: Soft, nontender, nondistended, normoactive bowel sounds. No palpable organomegaly. MUSCULOSKELETAL: No joint swelling or deformity. EXTREMITIES: No cyanosis, clubbing, or pedal edema. NEUROLOGICAL: Gross neurological examination did not reveal any focal deficits. SKIN: No rashes. Dictation was produced using [employer] dictation software. please excuse any grammatical, word or spelling errors. Patient Condition at Discharge: Good Plan - Discharge Summary Discharge Rx Participant: Yes New Discharge Prescriptions: New Aspirin 81 mg PO DAILY #30 tab Prasugrel [Effient] 10 mg PO DAILY 30 Days #30 tab Atorvastatin [Lipitor] 80 mg PO HS 30 Days #30 tab Nitroglycerin Sl Tabs [Nitrostat] 0.4 mg SUBLINGUAL Q5M PRN #30 tab PRN Reason: Chest Pain Doxycycline [Vibramycin] 100 mg PO BID 10 Days #20 cap Metoprolol Tartrate [Lopressor] 25 mg PO BID 30 Days #60 tab lisinopriL [Zestril] 5 mg PO BID 30 Days #60 tab Continue Fluticasone Nasal [place] [Flonase Nasal [place]] 1 spray EA NOSTRIL DAILY PRN PRN Reason: Nasal Congestion Tamsulosin HCl [Flomax] 0.4 mg PO BID HYDROcodone/APAP 10-325MG [[place] 10-325] 1 tab PO TID PRN PRN Reason: Pain Finasteride [Proscar] 5 mg PO DAILY Discontinued Propranolol HCl [Inderal LA] 160 mg PO DAILY Amoxic-Pot Clav 875-125Mg [Augmentin 875-125] 1 tab PO BID methylPREDNISolone Dose Pack [Medrol Dose Pack] See Taper PO DIRECTED Discharge Medication List Fluticasone Nasal [place] [Flonase Nasal [place]] 1 spray EA NOSTRIL DAILY PRN 08/20/17 [History] Tamsulosin HCl [Flomax] 0.4 mg PO BID 08/20/17 [History] Finasteride [Proscar] 5 mg PO DAILY 01/08/24 [History] HYDROcodone/APAP 10-325MG [[place] 10-325] 1 tab PO TID PRN 01/08/24 [History] Aspirin 81 mg PO DAILY #30 tab 01/10/24 [Rx] Atorvastatin [Lipitor] 80 mg PO HS 30 Days #30 tab 01/10/24 [Rx] Doxycycline [Vibramycin] 100 mg PO BID 10 Days #20 cap 01/10/24 [Rx] Metoprolol Tartrate [Lopressor] 25 mg PO BID 30 Days #60 tab 01/10/24 [Rx] Nitroglycerin Sl Tabs [Nitrostat] 0.4 mg SUBLINGUAL Q5M PRN #30 tab 01/10/24 [Rx] Prasugrel [Effient] 10 mg PO DAILY 30 Days #30 tab 01/10/24 [Rx] lisinopriL [Zestril] 5 mg PO BID 30 Days #60 tab 01/10/24 [Rx] Follow up Appointment(s)/Referral(s): Fred Gotti MD [STAFF PHYSICIAN] - 1 Week Nolan Beck MD [Primary Care Provider] - 1-2 days Farida Marcelino MD [STAFF PHYSICIAN] - 1 Week Discharge Disposition: HOME SELF-CARE
--- NOTE | 2024-01-10 11:39 | P.PN ---
Subjective Progress Note Date: 01/10/24 Principal diagnosis: Reason for follow-up is right lower extremity ulcer and a tick bite history Patient is a 63-year-old -Malaysian male with a past medical history significant for hypertension hyperlipidemia was transferred from [facility] where the patient was diagnosed with ST elevated IN patient subsequently was taken to the [facility] and the patient is successful stenting of the mid RCA and DARIEN, patient also have a history of tick bite to the right lower extremity and some superficial ulceration probably this consultation. On today's evaluation that is 01/10/2024,the patient remains to be afebrile, patient is on room air not requiring supplemental oxygen and denies any shortness of breath no chest pain or cough.Patient denies having any nausea or vomiting, no abdominal pain and no diarrhea, mention feeling better wants to go home. Patient did have a creatinine 0.83 Lyme serologies currently pending Objective - Vital Signs Vital signs: Vital Signs Temp 98.3 F 01/10/24 04:00 Pulse 77 01/10/24 08:42 Resp 18 01/10/24 08:42 BP 111/67 01/10/24 08:42 Pulse Ox 100 01/10/24 08:42 FiO2 Intake & Output 01/09/24 01/10/24 01/10/24 18:59 06:59 18:59 Intake Total 360 Output Total 400 Balance -400 360 Weight 73.2 kg Intake: Oral 360 Output: Urine 400 Other: Voiding Method Toilet Toilet Toilet Urinal Urinal # Voids 1 1 # Bowel Movements 1 - Exam GENERAL DESCRIPTION: Middle-age male up in the room in no distress RESPIRATORY SYSTEM: Unlabored breathing , decreased breath sounds at bases HEART: S1 S2 regular rate and rhythm , ABDOMEN: Soft , no tenderness EXTREMITIES: Right lower extremity superficial ulceration no redness no drainage - Labs CBC & Chem 7: 01/08/24 10:46 01/10/24 06:52 Labs: Abnormal Lab Results - Last 24 Hours (Table) 01/10/24 Range/Units 06:52 BUN 7 L (9-20) mg/dL Assessment and Plan (1) Tick bite Current Visit: Yes Status: Acute Code(s): W57.XXXA - BIT/STUNG BY NONVENOM INSECT & OTH NONVENOM ARTHROPODS, INIT SNOMED Code(s): 04510716 (2) Leg wound, right Current Visit: Yes Status: Acute Code(s): S81.801A - UNSPECIFIED OPEN WOUND, RIGHT LOWER LEG, INITIAL ENCOUNTER SNOMED Code(s): 30388501229866959 Plan: 1patient with superficial wound to the right lower extremity in this patient reporting history of tick bite 2 months ago and the area has not completely healed up since then but did not recall any rash joint swelling or fever, the p ossible reason for nonhealing as the patient keep on taking at this area with evidence of any secondary bacterial cellulitis 2-we currently waiting for Lyme serology 3-patient has been advised doxycycline 100 mg twice a day x 10 days on discharge and to keep the small area covered with a Band-Aid follow-up in the office to go over the results of the Lyme serology Dictation was produced using [employer] dictation software. please excuse any grammatical, word or spelling errors. Time with Patient: Less than 30
--- NOTE | 2024-01-10 13:44 | P.PN ---
Subjective Progress Note Date: 01/10/24 PROGRESS NOTE The patient is a 63-year-old male with a history of hypertension, chronic tobacco use who presented to [facility] with symptoms of chest discomfort and was found to have an inferolateral wall myocardial infarction with ST segment depression in the anterior leads and ST elevation in the inferolateral leads. In view of that he was transferred to [facility] for further evaluation. According to the patient he has been complaining of chest discomfort on and off for about a year worse today after having his coffee associated with dyspnea. He denies any documented history of myocardial infarction or congestive heart failure. He cannot recall any recent cardiac workup. He smokes daily, has no history of diabetes. He denies any PND, orthopnea or peripheral edema. He has no arrhythmia, dizziness or syncope. January 08: The patient feels well this morning, he had vague chest discomfort yesterday does not appear to be ischemic. He is in sinus mechanism. Hemodynamically stable. His cardiac catheterization yesterday showed subtotal chronic occlusion of the RCA with acute occlusion of the OM1. He underwent stenting of both vessels. His echocardiogram showed mildly impaired systolic function with inferior and lateral wall hypokinesis. He has no evidence of ventricular ectopic activity or atrial fibrillation. 01/10/2024 Patient seen and examined. He states he is feeling great. He states chest pain has been resolved. He has had no pain since his stents were placed but did have some soreness in his chest initially. He states he has been walking in the hallway without any difficulty. Medications: Aspirin, Effient 10 mg daily, Lipitor 80 mg daily, Zestril 5 mg daily, metoprolol tartrate 25 mg twice a day PHYSICAL EXAMINATION: Blood pressure 111/67 heart rate 77 LUNGS: Clear to auscultation HEART: Regular rate and rhythm, S1, S2. No S3. No systolic murmur ABDOMEN: Soft, nontender, no organomegaly EXTREMETIES: No edema, right radial pulse intact LAB: Potassium 3.8, BUN 7, creatinine 0.83. EKG shows evidence of inferolateral T wave inversion IMPRESSION: 1. Status post STEMI and stenting of the RCA and OM1 2. History of chronic tobacco use 3. Hypertension 4. Mild cardiomyopathy PLAN: Continue current cardiac medications: Aspirin, Effient 10 mg daily, Lipitor 80 mg daily, Zestril 5 mg daily, metoprolol tartrate 25 mg twice a day Patient is cleared for discharge from cardiology May follow-up in the office with Dr. Gotti in 1 week. Nurse practitioner note has been reviewed, I agree with documented findings and plan of care. Patient was seen and examined. Objective - Vital Signs Vital signs: Vital Signs Temp 98.3 F 01/10/24 04:00 Pulse 77 01/10/24 08:42 Resp 18 01/10/24 08:42 BP 111/67 01/10/24 08:42 Pulse Ox 100 01/10/24 08:42 FiO2 Intake & Output 01/09/24 01/10/24 01/10/24 18:59 06:59 18:59 Intake Total 360 Output Total 400 Balance -400 360 Weight 73.2 kg Intake: Oral 360 Output: Urine 400 Other: Voiding Method Toilet Toilet Urinal Urinal # Voids 1 1 # Bowel Movements 1 - Labs CBC & Chem 7: 01/08/24 10:46 01/10/24 06:52 Labs: Abnormal Lab Results - Last 24 Hours (Table) 01/10/24 Range/Units 06:52 BUN 7 L (9-20) mg/dL
== END 2024-01-10 12:24 | disposition home or self-care (01) | DRG 322 ==
LOC: EC 10:38 → 2SICU 10:52 → 3SCARD 01-09 20:45
PROVIDERS: ADMIT Hospitalist; ATTEND Hospitalist
PROC: 027135Z Dilation of Coronary Artery, Two Arteries with Two Drug-eluting Intraluminal Devices, Percutaneous Approach (ICD-10-PCS; principal; 2024-01-08 10:45)
PROC: 4A023N7 Measurement of Cardiac Sampling and Pressure, Left Heart, Percutaneous Approach (ICD-10-PCS; 2024-01-08 10:45)
PROC: B2111ZZ Fluoroscopy of Multiple Coronary Arteries using Low Osmolar Contrast (ICD-10-PCS; 2024-01-08 10:45)
PROC: B241ZZ3 Ultrasonography of Multiple Coronary Arteries, Intravascular (ICD-10-PCS; 2024-01-08 10:45)
DX: I21.19 ST elevation (STEMI) myocardial infarction involving other coronary artery of inferior wall (principal); I42.9 Cardiomyopathy, unspecified; I10 Essential (primary) hypertension; E78.5 Hyperlipidemia, unspecified; F17.210 Nicotine dependence, cigarettes, uncomplicated; S81.801A Unspecified open wound, right lower leg, initial encounter; I25.10 Atherosclerotic heart disease of native coronary artery without angina pectoris; W57.XXXA Bitten or stung by nonvenomous insect and other nonvenomous arthropods, initial encounter; Z88.6 Allergy status to analgesic agent; Z79.02 Long term (current) use of antithrombotics/antiplatelets; Z79.82 Long term (current) use of aspirin
CPT/HCPCS: 36415; 71045; 80048; 80053; 80061; 83036; 83735; 84100; 84484; 85025; 85610; 85730; 86618; 92978; 92979; 93005; 93306; 93458; 99291

== ENCOUNTER 2024-01-13 09:48 | Emergency (ER) | payer MEDICARE ==
[2024-01-13 10:12] VITALS: TEMP 98.2
--- NOTE | 2024-01-13 10:31 | ED ---
Allergic Reaction HPI - General Chief complaint: Allergic Reaction Stated complaint: med reaction Time Seen by Provider: 01/13/24 09:51 Source: patient, RN notes reviewed Mode of arrival: ambulatory Limitations: no limitations - History of Present Illness Initial Comments: This is a 63-year-old male with CAD and recent OR with stent placement presenting to the emergency department with complaint of lip swelling and facial swelling. Patient states that he was started on a few new medications on Wednesday after being discharged from the hospital after OR and stent placement. Patient was started on lisinopril, metoprolol, and few other medications. He states that yesterday he began to notice that the left side of his superior lip was swelling and over the next approximately 24 hours the swelling began to progress to the right side of his lip and into his cheeks. has been experience being mild difficulty with swallowing. He denies shortness of breath, hives/urticaria, chest pain, heart palpitations, or difficulty breathing. - Related Data Home Medications Medication Instructions Recorded Confirmed Fluticasone Nasal Independence [Flonase 1 spray EA NOSTRIL DAILY PRN 08/20/17 01/08/24 Nasal Independence] Tamsulosin HCl [Flomax] 0.4 mg PO BID 08/20/17 01/08/24 Finasteride [Proscar] 5 mg PO DAILY 01/08/24 01/08/24 HYDROcodone/APAP 10-325MG [Burr 1 tab PO TID PRN 01/08/24 01/08/24 10-325] Previous Rx's Medication Instructions Recorded Aspirin 81 mg PO DAILY #30 tab 01/10/24 Atorvastatin [Lipitor] 80 mg PO HS 30 Days #30 tab 01/10/24 Doxycycline [Vibramycin] 100 mg PO BID 10 Days #20 cap 01/10/24 Metoprolol Tartrate [Lopressor] 25 mg PO BID 30 Days #60 tab 01/10/24 Nitroglycerin Sl Tabs [Nitrostat] 0.4 mg SUBLINGUAL Q5M PRN #30 tab 01/10/24 Prasugrel [Effient] 10 mg PO DAILY 30 Days #30 tab 01/10/24 lisinopriL [Zestril] 5 mg PO BID 30 Days #60 tab 01/10/24 predniSONE 50 mg PO DAILY #5 tab 01/13/24 Allergies Allergy/AdvReac Type Severity Reaction Status Date / Time ibuprofen AdvReac Vomiting Verified 01/08/24 10:42 Review of Systems ROS Statement: Those systems with pertinent positive or pertinent negative responses have been documented in the HPI. ROS Other: All systems not noted in ROS Statement are negative. Past Medical History Past Medical History: Hyperlipidemia, Hypertension Additional Past Medical History / Comment(s): sinus surgery/adenoid removal chronic back pain History of Any Multi-Drug Resistant Organisms: None Reported Past Surgical History: Heart Catheterization With Stent Additional Past Surgical History / Comment(s): sinus vertigo, stent RCA and OM Past Anesthesia/Blood Transfusion Reactions: No Reported Reaction Date of Last Stent Placement:: 01/08/24 Past Psychological History: No Psychological Hx Reported Smoking Status: Current every day smoker Past Alcohol Use History: Daily Past Drug Use History: None Reported - Past Family History Mother Family Medical History: Diabetes Mellitus General Exam Limitations: no limitations General appearance: alert, in no apparent distress Head exam: Present: other (bilateral facial swelling, no erythema) Eye exam: Present: normal appearance, PERRL, EOMI. Absent: scleral icterus, conjunctival injection, periorbital swelling Expanded Mouth exam: Present: tongue normal, other (superior lip edema, no erythema ). Absent: normal external inspection, drooling, trismus, muffled voice, tongue elevation Neck exam: Present: normal inspection. Absent: tenderness, meningismus, lymphadenopathy Respiratory exam: Present: normal lung sounds bilaterally. Absent: respiratory distress, wheezes, rales, rhonchi, stridor Cardiovascular Exam: Present: regular rate, normal rhythm, normal heart sounds. Absent: systolic murmur, diastolic murmur, rubs, gallop, clicks GI/Abdominal exam: Present: soft, normal bowel sounds. Absent: distended, tenderness, guarding, rebound, rigid Back exam: Present: normal inspection Skin exam: Present: warm, dry, intact, normal color. Absent: rash Course Vital Signs 01/13/24 01/13/24 10:09 12:09 Temperature 98.2 F Pulse Rate 83 75 Respiratory 12 18 Rate Blood Pressure 143/83 120/80 O2 Sat by Pulse 99 98 Oximetry Medical Decision Making - Medical Decision Making Was pt. sent in by a medical professional or institution (, PA, TELEGRAPH PRINTER MECHANIC, urgent care, hospital, or usp...) When possible be specific @ -No Did you speak to anyone other than the patient for history (EMS, parent, family, police, friend...)? What history was obtained from this source @ -No Did you review nursing and triage notes (agree or disagree)? Why? @ -I reviewed and agree with nursing and triage notes Were old charts reviewed (outside hosp., previous admission, EMS record, old EKG, old radiological studies, urgent care reports/EKG's, usp records)? Report findings @ -No old charts were reviewed Differential Diagnosis (chest pain, altered mental status, abdominal pain women, abdominal pain men, vaginal bleeding, weakness, fever, dyspnea, syncope, headache, dizziness, GI bleed, back pain, seizure, CVA, palpatations, mental health, musculoskeletal)? @ -Contact dermatitis, allergic reaction, anaphylaxis, angioedema, this is not all inclusive EKG interpreted by me (3pts min.). @ -None X-rays interpreted by me (1pt min.). @ -None done CT interpreted by me (1pt min.). @ -None done U/S interpreted by me (1pt. min.). @ -None done What testing was considered but not performed or refused? (CT, X-rays, U/S, labs)? Why? @ -None What meds were considered but not given or refused? Why? @ -None Did you discuss the management of the patient with other professionals (professionals i.e. , PA, TELEGRAPH PRINTER MECHANIC, lab, RT, psych nurse, social worker clinical, laboratory assistant, teacher, consular officer, wrapper caser)? Give summary @ -No Was smoking cessation discussed for >3mins.? @ -No Was critical care preformed (if so, how long)? @ -No Were there social determinants of health that impacted care today? How? (Homelessness, low income, unemployed, alcoholism, drug addiction, transportation, low edu. Level, literacy, decrease access to med. care, usp, rehab)? @ -No Was there de-escalation of care discussed even if they declined (Discuss DNR or withdrawal of care, Hospice)? DNR status @ -No What co-morbidities impacted this encounter? (DM, HTN, Smoking, COPD, CAD, Cancer, CVA, ARF, Chemo, Hep., AIDS, mental health diagnosis, sleep apnea, morbid obesity)? @ -None Was patient admitted / discharged? Hospital course, mention meds given and route, prescriptions, significant lab abnormalities, going to OR and other pertinent info. @ -Discharge. 63-year-old male with allergic reaction. Evaluation patient noted to have superior lip edema and bilateral facial edema. There is no tongue swelling or floor mouth swelling. Vitals are stable. Patient is not exhibiting symptoms of respiratory distress. Patient provided with allergic cocktail including Solu-Medrol and Benadryl. On reevaluation states that he is feeling somewhat better however swelling has minimally subsided. Discussed with patient at bedside that symptoms are likely secondary to initiation of lisinopril and recommend discontinuation of this medication. Patient is stable for discharge and strict return parameters discussed as if symptoms worsen such as difficulty breathing throat/tongue swelling report back to the emergency department immediately for further evaluation. Contact material preparation worker for further evaluation with likely change of blood pressure medications. discussed with Dr. Schuster Undiagnosed new problem with uncertain prognosis? @ -No Drug Therapy requiring intensive monitoring for toxicity (Heparin, Nitro, In sulin, Cardizem)? @ -No Were any procedures done? @ -No Diagnosis/symptom? @ - angioedema, allergic reaction Acute, or Chronic, or Acute on Chronic? @ -Acute Uncomplicated (without systemic symptoms) or Complicated (systemic symptoms)? @ -Uncomplicated Side effects of treatment? @ -No Exacerbation, Progression, or Severe Exacerbation? @ -No Poses a threat to life or bodily function? How? (Chest pain, USA, OR, pneumonia, PE, COPD, DKA, ARF, appy, cholecystitis, CVA, Diverticulitis, Homicidal, Suicidal, threat to staff... and all critical care pts) @ -No Disposition Clinical Impression: Angioedema, Allergic reaction Disposition: HOME SELF-CARE Condition: Stable Instructions (If sedation given, give patient instructions): Angioedema (ED) Additional Instructions: Please return to the Emergency Department if symptoms worsen or any other concerns. Complete full course of steroids as prescribed. Do not take lisinopril. Contact cardiology to schedule follow-up appointment. Prescriptions: predniSONE 50 mg PO DAILY #5 tab Is patient prescribed a controlled substance at d/c from ED?: No Referrals: Nolan Beck MD [Primary Care Provider] - 1-2 days Time of Disposition: 11:59
[2024-01-13] MEDS: methylPREDNISolone SOD SUCCI 125 MG/2 ML VIAL IV STA (10:38)
[2024-01-13] MEDS: diphenhydrAMINE 50 MG/ML 1 ML VIAL IVP STA (10:38)
[2024-01-13 12:10] VITALS: BP 120/80; PULSE 75; RESP 18
== END 2024-01-13 12:10 | disposition home or self-care (01) ==
LOC: EC 09:48
DX: T78.3XXA Angioneurotic edema, initial encounter (principal); T78.40XA Allergy, unspecified, initial encounter; F17.200 Nicotine dependence, unspecified, uncomplicated; Z88.6 Allergy status to analgesic agent
CPT/HCPCS: 99283; 96374; 99375; J1200; J2919; 96375